=== PATIENT | male | born 1960 | race Caucasian/White ===

== ENCOUNTER 2021-12-19 23:35 | Emergency (ER) | payer SELFPAY ==
[~2021-12-19] VITALS: Ht 185.4 cm; Wt 140.0 kg
[2021-12-19 23:46] VITALS: BP 164/99
[2021-12-20] VITALS: BP 154/101
[2021-12-20 00:20] VITALS: BP 171/104
[2021-12-20 01:21] VITALS: BP 133/82
[2021-12-20 01:30] VITALS: BP 146/100
[2021-12-20] MEDS ORDERED: NAPROXEN500 MG PO (02:11)
[2021-12-20] MEDS ORDERED: AMOXICILLIN500 MG PO (02:11)
[2021-12-20 02:31] VITALS: BP 146/100
== END 2021-12-20 04:21 | disposition home or self-care (01) | DRG 563 ==
LOC: ED 23:35
DX: S43.102A Unspecified dislocation of left acromioclavicular joint, initial encounter (principal); S80.212A Abrasion, left knee, initial encounter; S40.212A Abrasion of left shoulder, initial encounter; S50.312A Abrasion of left elbow, initial encounter; I10 Essential (primary) hypertension; F17.210 Nicotine dependence, cigarettes, uncomplicated; V13.4XXA Pedal cycle driver injured in collision with car, pick-up truck or van in traffic accident, initial encounter; Y92.410 Unspecified street and highway as the place of occurrence of the external cause

== ENCOUNTER 2021-12-23 19:22 | Emergency (ER) | payer SELFPAY ==
[2021-12-23] VITALS (12 sets, daily range): BP systolic 99–148; BP diastolic 69–101
[~2021-12-23] VITALS: Ht 185.4 cm; Wt 70.0 kg
[~2021-12-23 19:22] MED LIST: AMOXICILLIN500 MG PO; NAPROXEN500 MG PO
[2021-12-23 19:51] LABS: HEMATOCRIT 38.7 % (39.0-50.0); HEMOGLOBIN 13.1 g/dl (14.0-18.0); MEAN CELL VOLUME 94.6 fL CALC (80.0-100.0); MEAN CORPUSCULAR HGB CONC 33.9 g/dL CAL (32.0-36.0); NEUT# 5.79 thou/uL (1.82-7.42); RED BLOOD COUNT 4.09 mill/uL (4.70-6.10); RED CELL DISTRI WIDTH 12.8 % (11.5-15.5)
[2021-12-23 20:02] LABS: ALBUMIN 3.2 g/dL (3.2-5.0); ALKALINE PHOSPHATASE 48 u/l (38-126); ANION GAP 10 (6-22 (CALC)); BILIRUBIN, TOTAL 0.3 mg/dL (0.0-1.4); BUN 21 mg/dL (9-20); BUN/CREATININE RATIO 23 (12-20 (CALC)); CARBON DIOXIDE 23 mmol/l (22-30); CHLORIDE 112 mmol/l (95-108); CREATININE 0.9 mg/dL (0.7-1.3); ETHYL ALCOHOL 110 mg/dl (0-30); GFR > 60 ML/MIN (>=60 (CALC)); GFR FOR AFR.AMER. > 60 ML/MIN (>=60 (CALC)); MAGNESIUM 1.9 mg/dL (1.6-2.3); POTASSIUM 3.3 mmol/l (3.5-5.1); SGOT/AST 25 u/l (17-59); SODIUM 141 mmol/l (137-146); TOTAL PROTEIN 5.9 g/dL (6.3-8.2)
[2021-12-23 20:09] LABS: IMMATURE GRANULOCYTES 0.2 % (0.0-5.0)
[2021-12-23 20:13] LABS: MYOGLOBIN 48 ng/mL (0 - 121)
== END 2021-12-23 22:23 | disposition home or self-care (01) | DRG 897 ==
LOC: ED 19:22
PROVIDERS: Family Medicine
DX: F10.129 Alcohol abuse with intoxication, unspecified (principal); I10 Essential (primary) hypertension; F17.200 Nicotine dependence, unspecified, uncomplicated

== ENCOUNTER 2022-01-23 19:02 | Emergency (ER) | payer SELFPAY ==
[2022-01-23] VITALS (7 sets, daily range): BP systolic 129–137; BP diastolic 74–89
[~2022-01-23] VITALS: Ht 185.4 cm; Wt 62.7 kg
[2022-01-23 19:45] LABS: URINE BILIRUBIN - DIPSTICK NEGATIVE (NEGATIVE); URINE BLOOD DIPSTICK NEGATIVE (NEGATIVE); URINE COLOR YELLOW; URINE GLUCOSE - DIPSTICK 100 mg/dL (NEGATIVE); URINE KETONE TRACE mg/dL (NEGATIVE); URINE LEUK ESTERASE NEGATIVE (NEGATIVE); URINE PROTEIN - DIPSTICK NEGATIVE (NEG-TRACE); URINE UROBILINOGEN - DIPSTICK 0.2 E.U./dL (0.2)
[2022-01-23 19:46] LABS: HEMATOCRIT 38.8 % (39.0-50.0); HEMOGLOBIN 12.8 g/dl (14.0-18.0); IMMATURE GRANULOCYTES 0.2 % (0.0-5.0); MEAN CELL VOLUME 96.3 fL CALC (80.0-100.0); MEAN CORPUSCULAR HGB 31.8 pG CALC (26.0-32.0); NEUT# 3.52 thou/uL (1.82-7.42); RED BLOOD COUNT 4.03 mill/uL (4.70-6.10); RED CELL DISTRI WIDTH 13.1 % (11.5-15.5)
[2022-01-23 19:47] LABS: URINE NITRITE - DIPSTICK NEGATIVE (Negative)
[2022-01-23] MEDS ORDERED: BP MED (19:58)
[2022-01-23 20:00] LABS: ALBUMIN 2.7 g/dL (3.2-5.0); ALKALINE PHOSPHATASE 44 u/l (38-126); ANION GAP 8 (6-22 (CALC)); BILIRUBIN, TOTAL 0.2 mg/dL (0.0-1.4); BUN 19 mg/dL (9-20); BUN/CREATININE RATIO 22 (12-20 (CALC)); CARBON DIOXIDE 26 mmol/l (22-30); CHLORIDE 107 mmol/l (95-108); CREATININE 0.8 mg/dL (0.7-1.3); GFR FOR AFR.AMER. > 60 ML/MIN (>=60 (CALC)); GFR OTHER RACES > 60 ML/MIN (>=60 (CALC)); POTASSIUM 3.8 mmol/l (3.5-5.1); SGOT/AST 20 u/l (17-59); SODIUM 136 mmol/l (137-146); TOTAL PROTEIN 5.2 g/dL (6.3-8.2)
[2022-01-23] MEDS ORDERED: PAXLOVID PO (20:20)
== END 2022-01-23 20:45 | disposition home or self-care (01) | DRG 179 ==
LOC: ED 19:02
PROVIDERS: Family Medicine
DX: U07.1 COVID-19 (principal); R50.9 Fever, unspecified; R51.9 Headache, unspecified; R53.1 Weakness; I10 Essential (primary) hypertension; F17.200 Nicotine dependence, unspecified, uncomplicated

== ENCOUNTER 2022-02-28 08:38 | Day surgery (SDC) | payer SELFPAY ==
[~2022-02-28] VITALS: Ht 185.4 cm; Wt 62.6 kg
[~2022-02-28 08:38] MED LIST changes: +BP MED; +NAPROXEN250 MG PO; +PAXLOVID PO; +TOPROL XL50 MG PO
[2022-02-28] MEDS ORDERED: PERCOCET 5/325M1 TAB PO (11:05)
[2022-02-28 11:43] VITALS: BP 132/88
== END 2022-02-28 12:00 | disposition home or self-care (01) | DRG 352 ==
LOC: ORM 08:38
PROVIDERS: ATTEND Surgery
PROC: 0YU60JZ Supplement Left Inguinal Region with Synthetic Substitute, Open Approach (ICD-10-PCS; principal; 2022-02-28)
DX: K40.90 Unilateral inguinal hernia, without obstruction or gangrene, not specified as recurrent (principal); I10 Essential (primary) hypertension; F17.200 Nicotine dependence, unspecified, uncomplicated
CPT/HCPCS: C9290; J0131

== ENCOUNTER 2022-03-06 23:44 | Emergency (ER) | payer SELFPAY ==
[~2022-03-06] VITALS: Ht 185.4 cm; Wt 60.9 kg
[~2022-03-06 23:44] MED LIST changes: +PERCOCET 5/325M1 TAB PO
[2022-03-06 23:51] VITALS: BP 153/111
[2022-03-07] VITALS: BP 144/93
[2022-03-07 00:29] LABS: MEAN CORPUSCULAR HGB 30.7 pG CALC (26.0-32.0); NEUT# 3.63 thou/uL (1.82-7.42); RED BLOOD COUNT 6.28 mill/uL (4.70-6.10); RED CELL DISTRI WIDTH 12.7 % (11.5-15.5)
[2022-03-07 00:30] VITALS: BP 129/85
[2022-03-07 00:35] LABS: HEMATOCRIT 56.7 % (39.0-50.0); HEMOGLOBIN 19.3 g/dl (14.0-18.0); MEAN CELL VOLUME 90.3 fL CALC (80.0-100.0)
[2022-03-07 00:38] LABS: ALKALINE PHOSPHATASE 54 u/l (38-126); ANION GAP 8 (6-22 (CALC)); BUN 22 mg/dL (9-20); BUN/CREATININE RATIO 25 (12-20 (CALC)); CARBON DIOXIDE 30 mmol/l (22-30); CHLORIDE 104 mmol/l (95-108); CREATININE 0.9 mg/dL (0.7-1.3); GFR FOR AFR.AMER. > 60 ML/MIN (>=60 (CALC)); GFR OTHER RACES > 60 ML/MIN (>=60 (CALC)); SGOT/AST 19 u/l (17-59); SODIUM 138 mmol/l (137-146)
[2022-03-07 00:43] LABS: ALBUMIN 3.5 g/dL (3.2-5.0); BILIRUBIN, TOTAL 0.6 mg/dL (0.0-1.4); TOTAL PROTEIN 6.3 g/dL (6.3-8.2)
[2022-03-07 01:00] VITALS: BP 152/96
[2022-03-07 01:11] LABS: URINE BLOOD DIPSTICK NEGATIVE (NEGATIVE); URINE COLOR YELLOW; URINE GLUCOSE - DIPSTICK NEGATIVE (NEGATIVE); URINE KETONE TRACE mg/dL (NEGATIVE); URINE LEUK ESTERASE NEGATIVE (NEGATIVE); URINE PH 5.5 (4.5-8.0); URINE PROTEIN - DIPSTICK NEGATIVE (NEG-TRACE); URINE SPECIFIC GRAVITY 1.025
[2022-03-07 01:16] LABS: URINE BILIRUBIN - DIPSTICK SMALL (NEGATIVE); URINE NITRITE - DIPSTICK NEGATIVE (Negative)
[2022-03-07 01:31] VITALS: BP 142/124
[2022-03-07 01:40] VITALS: BP 155/101
[2022-03-07 01:43] VITALS: BP 155/101
== END 2022-03-07 01:45 | disposition home or self-care (01) | DRG 563 ==
LOC: ED 23:44
PROVIDERS: Family Medicine
DX: S39.011A Strain of muscle, fascia and tendon of abdomen, initial encounter (principal); I10 Essential (primary) hypertension; F17.200 Nicotine dependence, unspecified, uncomplicated; X50.0XXA Overexertion from strenuous movement or load, initial encounter; Y93.55 Activity, bike riding; Z98.890 Other specified postprocedural states

== ENCOUNTER 2022-03-29 09:00 | Day surgery (SDC) | payer SELFPAY ==
[~2022-03-29] VITALS: Ht 185.4 cm; Wt 65.3 kg
[2022-03-29] MEDS ORDERED: PERCOCET 5/325M1 TAB PO ×2 (10:36→10:39)
[2022-03-29 13:30] VITALS: BP 141/88
== END 2022-03-29 13:25 | disposition home or self-care (01) | DRG 352 ==
LOC: ORM 09:00
PROVIDERS: ATTEND Surgery
PROC: 0YU50JZ Supplement Right Inguinal Region with Synthetic Substitute, Open Approach (ICD-10-PCS; principal; 2022-03-29)
PROC: 0VBF0ZZ Excision of Right Spermatic Cord, Open Approach (ICD-10-PCS; 2022-03-29)
DX: K40.90 Unilateral inguinal hernia, without obstruction or gangrene, not specified as recurrent (principal); D17.6 Benign lipomatous neoplasm of spermatic cord; I10 Essential (primary) hypertension; F17.200 Nicotine dependence, unspecified, uncomplicated
CPT/HCPCS: C9290; J0131

== ENCOUNTER 2023-04-23 21:09 | Emergency (ER) | payer SELFPAY ==
[~2023-04-23] VITALS: Ht 188 cm; Wt 68.0 kg
[2023-04-23 22:30] LABS: BASO% 0.8 % (0-3); EOS% 7.6 % (0-8); IMMATURE GRANULOCYTES 0.2 % (0.0-5.0); LYMPH% 24.9 % (15-41); MEAN CORPUSCULAR HGB CONC 33.7 g/dL CAL (32.0-36.0); MONO% 6.2 % (2-13); NEUT# 6.04 thou/uL (1.82-7.42); NEUT% 60.3 % (42-76); RED BLOOD COUNT 4.51 mill/uL (4.70-6.10); RED CELL DISTRI WIDTH 13.6 % (11.5-15.5)
[2023-04-23 22:31] LABS: HEMATOCRIT 41.5 % (39.0-50.0)
[2023-04-23 22:41] LABS: ALBUMIN 3.7 g/dL (3.2-5.0); ALKALINE PHOSPHATASE 77 u/l (38-126); ANION GAP 11 (6-22 (CALC)); BUN 16 mg/dL (9-20); BUN/CREATININE RATIO 15 (12-20 (CALC)); CARBON DIOXIDE 28 mmol/l (22-30); CHLORIDE 107 mmol/l (95-108); CREATININE 1.1 mg/dL (0.7-1.3); GFR FOR AFR.AMER. > 60 ML/MIN (>=60 (CALC)); GFR OTHER RACES > 60 ML/MIN (>=60 (CALC)); POTASSIUM 4.1 mmol/l (3.5-5.1); SGOT/AST 32 u/l (17-59); SODIUM 141 mmol/l (137-146)
[2023-04-23 22:42] LABS: BILIRUBIN, TOTAL 0.3 mg/dL (0.2-1.3)
[2023-04-23] MEDS ORDERED: TAM75CAP PO (23:23)
[2023-04-24 00:22] VITALS: BP 138/88
== END 2023-04-24 00:22 | disposition home or self-care (01) | DRG 153 ==
LOC: ED 21:09
PROVIDERS: Emergency Medicine
DX: J11.1 Influenza due to unidentified influenza virus with other respiratory manifestations (principal); I10 Essential (primary) hypertension; F17.200 Nicotine dependence, unspecified, uncomplicated